=== PATIENT | female | born 1950 | race Caucasian/White ===

== ENCOUNTER → 2017-12-27 | Outpatient (CLI) | payer MEDICARE ==
--- NOTE | 2017-12-27 14:41 | Diagnostic Imaging Report ---
Exam: Left and right wrist and hand 2 views each History: Pain, rheumatoid arthritis Comparison: None. Findings: No fracture or malalignment. Narrowing of the interphalangeal joints, first carpometacarpal, and triscaphe joint bilaterally with osteophytosis most prominent at the thumb interphalangeal joint. No erosive change. No abnormal soft tissue calcification or soft tissue defect. Impression: No acute osseous abnormality Degenerative arthrosis of the hands Signed by: Dr. Guillermo Corona M.D. on 12/27/2017 2:37 PM
== END ==
LOC: RAD 13:44
PROVIDERS: ATTEND Allergy & Immunology Allergy
DX: M06.9 Rheumatoid arthritis, unspecified (principal); M65.4 Radial styloid tenosynovitis [de Quervain]; Z79.899 Other long term (current) drug therapy